=== PATIENT | male | born 1985 | race Caucasian/White ===

== ENCOUNTER 2017-08-18 21:09 | Emergency (ER) | payer MEDICARE, BC ==
--- NOTE | 2017-08-18 21:17 | ED PDOC ---
Arrival/HPI - General Historian: Patient <Kemar Luciano - Last Filed: 08/18/17 22:10> <Brain Chew - Last Filed: 08/18/17 22:21> - General Time Seen by Provider: 08/18/17 21:16 - History of Present Illness Narrative History of Present Illness (Text): 08/18/17 21:17 32 y/o male, pmh including DM type I, penicillin and vancomycin allergy, c/o rt. ankle/foot inversion injury and pain x 2 hours. Aching pain, painful to bear weight, no numbness or tingling, no rash, no night sweat, no dizziness, no change in vision, no other medical or psychological complaints. (Kemar Luciano) Past Medical History - Provider Review Nursing Documentation Reviewed: Yes - Infectious Disease Hx of Infectious Diseases: None - Tetanus Immunization Tetanus Immunization: Unknown - Cardiac Hx Hypertension: No - Pulmonary Hx Respiratory Disorders: No Hx Asthma: No Hx Bronchitis: No Hx Chronic Obstructive Pulmonary Disease (COPD): No Hx Emphysema: No Hx Pneumonia: No Hx Respiratory Aspiration: No Hx Respiratory Tract Infection: No Hx Sleep Apnea: No Hx Tuberculosis: No - Neurological Hx Transient Ischemic Attacks (TIA): No - HEENT Hx HEENT Disorder: No Hx Blind: No Hx Cataracts: No Hx Deafness: No Hx Difficulty Chewing: No Hx Epistaxis: No Hx Glaucoma: No Hx Macular Degeneration: No - Renal Hx Renal Disorder: No Hx Dialysis: No Hx Kidney Stones: No Hx Neurogenic Bladder: No Hx Pyelonephritis: No Hx Renal Cancer: No Hx Renal Failure: No - Endocrine/Metabolic Hx Diabetes Mellitus Type 1: Yes Hx Diabetes Mellitus Type 2: No - Hematological/Oncological Hx Blood Disorders: No Hx AIDS: No Hx Anemia: No Hx Cancer: No Hx Chemotherapy: No Hx Cirrhosis: No Hx Hemophilia: No Hx Hepatitis A: No Hx Hepatitis B: No Hx Hepatitis C: No Hx Metastasis: No Hx Shingles: No Hx Sickle Cell Disease: No Hx Unexplained Bleeding: No - Integumentary Hx Dermatological Disorder: No Hx Basal Cell Carcinoma: No Hx Eczema: No Hx Melanoma: No Hx Psoriasis: No Hx Squamous Cell Carcinoma: No - Musculoskeletal/Rheumatological Hx Musculoskeletal Disorders: No Hx Arthritis: No Hx Back Pain: No Hx Degenerative Joint Disease: No Hx Falls: No Hx Fractures: No Hx Gout: No Hx Herniated Disk: No Hx Myasthenia Gravis: No Hx Osteoarthritis: No Hx Osteomyelitis: No Hx Osteoporosis: No Hx Rhabdomyolysis: No Hx Spinal Stenosis: No Hx Unsteady Gait: No - Gastrointestinal Hx Gastrointestinal Disorders: No Hx Colostomy: No Hx Crohn's Disease: No Hx Diverticulitis: No Hx Gall Bladder Disease: No Hx Gastroesophageal Reflux: No Hx Gastrointestinal Ulcer: No Hx Ileostomy: No Hx Irritable Bowel: Yes Hx Liver Failure: No Hx Pancreatitis: No HX Swallowing Problems: No - Genitourinary/Gynecological Hx Genitourinary Disorders: No Hx Hematuria: No Hx Incontinence: No Hx Prostate Problems: No Hx Sexually Transmitted Diseases: No Hx Urinary Tract Infection: No Other/Comment: circumcision 2015 - Psychiatric Hx Psychophysiologic Disorder: No Hx Anxiety: No Hx Bipolar Disorder: No Hx Depression: No Hx Emotional Abuse: No Hx Hallucinations: No Hx Panic Disorder: No Hx Post Traumatic Stress Disorder: No Hx Psychosis: No Hx Physical Abuse: No Hx Schizophrenia: No Hx Sexual Abuse: No Hx Substance Use: Yes (used to use marijuana) - Past Surgical History Past Surgical History: No Previous - Surgical History Hx Amputation: No Hx Appendectomy: No Hx Cardiac Catheterization: No Hx Cholecystectomy: No Hx Coronary Stent: No Hx Gastric Bypass Surgery: No Hx Hysterectomy: No Hx Joint Replacement: No Hx Kidney Transplant: No Hx Liver Transplant: No Hx Mastectomy: No Hx Musculoskeletal Surgery: No Hx Open Heart Surgery: No Hx Orthopedic Surgery: Yes (left shoulder surgery) Hx Splenectomy: No Hx Valve Replacement: No Other/Comment: abcess to jaw, drained by oral surgeon - Anesthesia Hx Anesthesia: Yes Hx Anesthesia Reactions: No Hx Malignant Hyperthermia: No - Suicidal Assessment Feels Threatened In Home Enviroment: No <Kemar Luciano - Last Filed: 08/18/17 22:10> Family/Social History - Physician Review Nursing Documentation Reviewed: Yes Family/Social History: Unknown Family HX Smoking Status: Light Smoker < 10 Cigarettes Daily Hx Alcohol Use: Yes (2-3 beers every other week) Hx Substance Use: Yes (used to use marijuana) Hx Substance Use Treatment: No <Kemar Luciano - Last Filed: 08/18/17 22:10> Allergies/Home Meds <Kemar Luciano - Last Filed: 08/18/17 22:10> <Brain Chew - Last Filed: 08/18/17 22:21> Allergies/Adverse Reactions: Allergies FISH Allergy (Severe, Verified 10/06/15 15:45) RASH shellfish derived Allergy (Severe, Verified 10/06/15 15:45) ANAPHYLAXIS Penicillins Allergy (Verified 10/05/15 20:46) SWELLING vancomycin HCl [From Vancocin] Allergy (Verified 10/05/15 20:47) RASH Home Medications: Home Meds Medication Instructions Recorded Confirmed Insulin Detemir [Levemir] 15 unit SC BID 11/14/13 08/18/17 Insulin Aspart [Novolog] 8 unit SQ AC 10/06/15 08/18/17 Review of Systems - Review of Systems Constitutional: absent: Fatigue, Fevers Eyes: absent: Vision Changes ENT: absent: Hearing Changes Respiratory: absent: SOB, Cough Cardiovascular: absent: Chest Pain Gastrointestinal: absent: Abdominal Pain, Nausea, Vomiting Musculoskeletal: Arthralgias. absent: Back Pain, Neck Pain, Joint Swelling, Myalgias Skin: absent: Rash, Pruritis Neurological: absent: Headache, Dizziness Psychiatric: absent: Anxiety, Depression <Kemar Luciano - Last Filed: 08/18/17 22:10> Physical Exam Pain Distress: Moderate - Systems Exam Head: Present: Atraumatic, Normocephalic Pupils: Present: PERRL Extroacular Muscles: Present: EOMI Conjunctiva: Present: Normal Mouth: Present: Moist Mucous Membranes Neck: Present: Normal Range of Motion Respiratory/Chest: Present: Clear to Auscultation, Good Air Exchange. No: Respiratory Distress, Accessory Muscle Use Cardiovascular: Present: Regular Rate and Rhythm, Normal S1, S2. No: Murmurs Abdomen: No: Tenderness, Distention, Peritoneal Signs Back: Present: Normal Inspection Upper Extremity: Present: Normal Inspection. No: Cyanosis, Edema Lower Extremity: Present: Normal Inspection, Other (Rt. ankle/foot: +ttp on the lateral 5th metatarsal region and lateral ankle region, no swelling or deformity , negative is[place] and castellanos signs, FROM without limitation, sensation intact, motor 5/5, +DPPT Pulses, capillary refill< 2 seconds, neurovascular intact. ). No: Edema Neurological: Present: GCS=15, CN II-XII Intact, Speech Normal Skin: Present: Warm, Dry, Normal Color. No: Rashes Psychiatric: Present: Alert, Oriented x 3, Normal Insight, Normal Concentration <Kemar Luciano - Last Filed: 08/18/17 22:10> Vital Signs Temp Pulse Resp BP Pulse Ox 08/18/17 21:23 98.4 F 84 18 123/70 99 Medical Decision Making - RAD Interpretation Laboratory Scientist: Radiologist <Kemar Luciano - Last Filed: 08/18/17 22:10> <Brain Chew - Last Filed: 08/18/17 22:21> ED Course and Treatment: 08/18/17 21:22 -rt. ankle/foot xray -motrin -observe and reassess 08/18/17 22:10 -xrays show no fracture or dislocation, thu wrap applied with neurovascular intact, crutches. -Discharge home with naproxen, acewrap, crutches, ice compression, non-weight bearing, follow up with your own pmd and civil engineering design draftsperson/orthopedic within 2 days, return to the ER for any new or worsening signs or symptoms. (Kemar Luciano) - RAD Interpretation Radiology Orders: 08/18/17 21:20 ANKLE RIGHT 3 VIEWS ROUTINE [RAD] Stat FOOT RIGHT 3 VIEWS ROUTINE [RAD] Stat Rt. ankle xray: Rt. foot xray: (Kemar Luciano) - Medication Orders Current Medication Orders: Discontinued Medications Ibuprofen (Motrin Tab) 600 mg PO STAT STA Stop: 08/18/17 21:21 Last Admin: 08/18/17 21:33 Dose: 600 mg MAR Pain/Vitals Document 08/18/17 21:33 JOL (Rec: 08/18/17 21:34 JOL [id number]) Pain Reassessment Is This A Pain ReAssessment? No Sleep Is patient sleeping during reassessment? No Presence of Pain Presence of Pain Yes Pain Scale Used Pain Scale Used Numeric Location Intensity 5 Scale Used Numeric - PA / SHALLOT CLEANER / Resident Statement MD/DO has reviewed & agrees with the documentation as recorded. <Kemar Luciano - Last Filed: 08/18/17 22:10> - PA / SHALLOT CLEANER / Resident Statement / has reviewed & agrees with the documentation as recorded. / has examined the patient and agrees with the treatment plan. <Brain Chew - Last Filed: 08/18/17 22:21> Disposition/Present on Arrival - Present on Arrival Any Indicators Present on Arrival: No History of DVT/PE: No History of Uncontrolled Diabetes: Yes Urinary Catheter: No History of Decub. Ulcer: No History Surgical Site Infection Following: None - Disposition Have Diagnosis and Disposition been Completed?: Yes Disposition Time: :23 Patient Plan: Discharge <Kemar Luciano - Last Filed: 08/18/17 22:10> <Brain Chew - Last Filed: 08/18/17 22:21> - Disposition Diagnosis: Injury of ankle and foot Disposition: HOME/ ROUTINE Patient Problems: Current Active Problems Problem Status Onset Injury of ankle and foot Acute Condition: GOOD Additional Instructions: -Discharge home with naproxen, thu wrap, crutches, ice compression, non-weight bearing, follow up with your own pmd and civil engineering design draftsperson/orthopedic within 2 days, return to the ER for any new or worsening signs or symptoms. Prescriptions: Naproxen 500 mg PO BID #28 tab Referrals: Fabián Go DPM [Staff Provider] - Follow up with primary Sergio Viveros MD [Staff Provider] - Follow up with primary Forms: WORK NOTE
[2017-08-18 21:18] VITALS: BMI 28.7
[2017-08-18 21:24] VITALS: BP 123/70; PULSE 84; RESP 18; TEMP 98.4; O2SAT 99
--- NOTE | 2017-08-19 09:30 | RAD ---
PROCEDURE: Right Ankle Radiographs. HISTORY: rt. ankle inversion injury COMPARISON: None FINDINGS: BONES: Normal. No fracture. JOINTS: Normal. No osteoarthritis. Ankle mortise maintained. Talar dome intact SOFT TISSUES: Normal. OTHER FINDINGS: None. IMPRESSION: Normal right ankle radiographs.
--- NOTE | 2017-08-19 09:31 | RAD ---
PROCEDURE: Right Foot Radiographs. HISTORY: rt. foot inversion injury COMPARISON: None. FINDINGS: BONES: Normal. No fracture. JOINTS: Normal. SOFT TISSUES: Normal. OTHER FINDINGS: None. IMPRESSION: Normal right foot radiographs.
== END 2017-08-18 22:22 | disposition home or self-care (01) ==
LOC: ED 21:09
DX: S99.911A Unspecified injury of right ankle, initial encounter (principal); X50.1XXA Overexertion from prolonged static or awkward postures, initial encounter; Y92.9 Unspecified place or not applicable